=== PATIENT | female | born 1985 | race Caucasian/White ===

== ENCOUNTER 2022-05-22 08:00 | Outpatient (NON) | payer OTHER, SELFPAY | END 2022-05-22 08:01 | disposition home or self-care (01) | LOC: ANHLAB 05-23 07:55 | PROVIDERS: Visit Provider Internal Medicine Gastroenterology | DX: D50.9 Iron deficiency anemia, unspecified (principal) | CPT/HCPCS: 88305 ==

== ENCOUNTER 2022-05-22 09:54 | Day surgery (SDC) | payer OTHER, SELFPAY ==
[2022-05-18 09:09] VITALS: BMI 21.5
--- NOTE | 2022-05-21 14:23 | PM.HPGS ---
History of Present Illness History of Present Illness Consent: Risks, benefits, and alternatives have been discussed and questions answered. Patient agrees to proceed with procedure. Chief complaint: Microcystic Anemia Narrative: Stephanie Saucedo is a 37 year old female who has been found to be anemic, with Hemoglobin of 9.5, MCV 74.She has had loose stools for several months. Denies blood in stools. Fam Hx neg. Review of Systems Review of Systems: All systems reviewed & are unremarkable except as noted in HPI and below PMFSH Past Medical History Medical History Anemia Anxiety Endometriosis GERD (gastroesophageal reflux disease) Family History Family History Father Hypertension Mother Asthma Other Diabetes mellitus Family history of malignant neoplasm Social History Social History Smoking packs per day: 0.5 Smoking cigarettes per day: 10.0 Years smoked: 15 Smoking pack-years: 7.50 Smoking status: Current every day smoker Tobacco type: cigarettes and e-cigarettes/vaping Smoking end date: 06/18/09 Alcohol intake: current Drinks per week: 8 Substance use: never Living arrangements: with family Spiritual care concerns: No Meds Home Medications and Allergies Home Medications Medication Instructions Recorded Confirmed Type alprazolam 0.25 mg tablet 0.25 mg PO BID PRN Anxiety 05/18/22 05/22/22 History escitalopram oxalate 10 mg tablet 5 mg PO HS 05/18/22 05/22/22 History Allergies Allergy/AdvReac Type Severity Reaction Status Date / Time Sulfa (Sulfonamide Allergy Intermediate Hives Verified 05/22/22 10:34 Antibiotics) adhesive Allergy Unknown RASH Verified 05/22/22 10:34 morphine Allergy Unknown Itching, Verified 05/22/22 10:34 HIVES Exam Const: General: alert Orientation/consciousness: patient oriented x3 Resp: Auscultation: clear to auscultation bilaterally Cardio: Rhythm: regular rhythm GI: GI Palp: Yes Soft to palpation and No Tenderness to palpation present (GI) Neuro: General: patient oriented x3 Assessment and Plan Assessment and plan (1) Microcytic anemia: Code(s): D50.9 - Iron deficiency anemia, unspecified Status: Acute Assessment and Plan: Colonoscopy with possible biopsy or polypectomy or cautery or injection of substances.
--- NOTE | 2022-05-22 07:10 | WPDANESEPPF ---
Anes - Initial Pre Proc Eval Procedure: Operation Date: 05/22/22 14:15 Proposed Procedures p Diagnostic Colonoscopy - Brando Cerda MD Date/Time: 05/22/22 07:10 Surgeon: Brando Cerda MD Pre Op Diagnosis: Microcystic Anemia Patient Data Age: 37 Gender: F Height: 1.52 m Weight: 50 kg Allergies Allergy/AdvReac Type Severity Reaction Status Date / Time Sulfa (Sulfonamide Allergy Intermediate Hives Verified 05/22/22 10:34 Antibiotics) adhesive Allergy Unknown RASH Verified 05/22/22 10:34 morphine Allergy Unknown Itching, Verified 05/22/22 10:34 HIVES Home Medications Medication Instructions Recorded Confirmed Type alprazolam 0.25 mg tablet 0.25 mg PO BID PRN Anxiety 05/18/22 05/18/22 History escitalopram oxalate 10 mg tablet 5 mg PO HS 05/18/22 05/18/22 History Patient hx anesthesia problems: none Family hx anesthesia problems: none Results Review: All pre-operative results and documents have been reviewed as part of the pre-operative evaluation. [facility] Past Medical History Medical History (Updated 05/22/22 @ 07:11 by Adria Martinez DO) Anemia Anxiety Endometriosis GERD (gastroesophageal reflux disease) Family History Family History (Updated 10/25/15 @ 16:28 by DOCTOR UNKNOWN) Father Hypertension Mother Asthma Other Diabetes mellitus Family history of malignant neoplasm Social History Social History Smoking packs per day: 0.5 Smoking cigarettes per day: 10.0 Years smoked: 15 Smoking pack-years: 7.50 Smoking status: Current every day smoker Tobacco type: cigarettes and e-cigarettes/vaping Smoking end date: 06/18/09 Alcohol intake: current Drinks per week: 8 Substance use: never Living arrangements: with family Spiritual care concerns: No Anes - Eval Final PreProcedure Day of Procedure 05/22/22 07:10 Patient weight: normal Heart: regular rate and rhythm Lungs: clear to auscultation and normal air movement Airway: Mallampati scale class II Neurological: alert and oriented Last oral intake: >/= 8 hours ASA classification: II Emergent: no Anesthetic plan: proceed Anesthesia type and monitoring: general GIVS and standard monitoring Results Review: All pre-operative results and documents have been reviewed as part of the pre-operative evaluation. Informed Consent: The patient's anesthetic plan and its attendant risks and benefits were discussed with the patient/family/POA. Questions were solicited and answers provided to the satisfaction of the patient/family/POA.
[2022-05-22 10:25] VITALS: BP 121/74; PULSE 65; RESP 20; TEMP 36.9; O2SAT 100
[2022-05-22] MEDS: LACTATED RINGERS 1,000 ML 150 ML IV CONT (10:50)
[2022-05-22 12:03] VITALS: BP 96/63; PULSE 76; RESP 18; O2SAT 100
[2022-05-22 12:13] VITALS: BP 105/68; PULSE 72; RESP 20; O2SAT 100
[2022-05-22 12:23] VITALS: BP 107/76; PULSE 72; RESP 20; O2SAT 100
--- NOTE | 2022-05-22 13:35 | WPDANESPN ---
Anes - Prog Note Post-Op Date/Time: 05/22/22 13:35 Cardiovascular status: normal Respiratory status: normal Airway patency: baseline Mental status: baseline Post-Op hydration status: normal Vital Signs: Last Vital Signs Temp 36.9 C 05/22/22 10:25 Pulse 72 05/22/22 12:23 Resp 20 05/22/22 12:23 BP 107/76 05/22/22 12:23 Pulse Ox 100 05/22/22 12:23 O2 Del Method Room Air 05/22/22 12:23 Pain Score (VAS): 0 Post-procedural complaints: none Patient Feedback: Patient satisfied with anesthetic care. Other Findings: Patient vital signs back to baseline. Patient denies nausea and vomiting. Patient's pain under control. Patient OK for discharge.
== END 2022-05-22 12:33 | disposition home or self-care (01) ==
PROVIDERS: Visit Provider Internal Medicine Gastroenterology
PROC: 0DJD8ZZ Inspection of Lower Intestinal Tract, Via Natural or Artificial Opening Endoscopic (ICD-10-PCS; CPT 45378; principal; 2022-05-22 14:15)
DX: D50.9 Iron deficiency anemia, unspecified (principal)
CPT/HCPCS: 45380

== ENCOUNTER 2022-06-15 08:00 | Outpatient (NON) | payer OTHER, SELFPAY | END 2022-06-15 08:01 | disposition home or self-care (01) | LOC: ANHLAB 06-16 07:34 | PROVIDERS: PCP Family Medicine; Visit Provider Internal Medicine Gastroenterology | DX: K90.0 Celiac disease (principal) | CPT/HCPCS: 88305 ==

== ENCOUNTER 2022-06-15 11:32 | Day surgery (SDC) | payer OTHER, SELFPAY ==
[2022-06-14 10:52] VITALS: BMI 21.7
[2022-06-14 12:51] VITALS: BMI 21.4
--- NOTE | 2022-06-14 12:56 | SUR.PREOP ---
PRE-OPERATIVE [address] [address] 1. Report to the Surgery Center Waiting Room, the entrance is the first door on the right after passing through the automatic sliding doors, at time 1200____on date__06/15/22 . OR Time:_1330 . - You and your visitor will be asked to self-screen and do not enter if you have any COVID symptoms. - Two visitors over, age 16 and older, are allowed.? NO children visitors are allowed at this time. - Masking is based on community transmissions levels in [facility].? When the community transmission level is HIGH, masking will be required.? Signage will be posted indicating if masking is required the day of your procedure.? 2. Patients may have clear liquids (water, carbonated beverages, clear teas, apple juice) until 3 hours prior to surgery with a maximum of 20 ounces. - No food from midnight until time of surgery. - Infants may have breast milk until 4 hours before surgery, infant formula 6 hours prior to surgery. - Children will be allowed to drink immediately following surgery. If applicable, please bring a bottle or sippy cup to assist with drinking. Juice, water, soda, and popsicles are readily available. For infants on formula, please bring formula the day of surgery. Pacifiers are allowed. 3. Take the following medications with a SIP of water the morning of surgery: 1.___Alprazolam PRN 2. 3. Medications to discontinue per physician order: 1._n/a date to discontinue: 4. No make-up, nail malagasy, hairspray, perfume, deodorant, or body powder the day of surgery. No jewelry (including any body piercings) or valuables the day of surgery. Please take a shower or bath the night before, or the morning of, surgery with an antibacterial soap. Wear comfortable, loose fitting clothing. Children are encouraged to wear pajamas. - Jewelry must be removed prior to entering the operating room. Rings and piercings that are not removed will be cut off. The center will not accept responsibility for valuables. Please leave all valuables, including medications, at home the day of surgery. 5. When going home after surgery, a licensed driver license reviewing officer must drive you home. NO public transportation without another adult. We recommend someone to stay with you, no alcoholic beverages, driving or important decision making for 24 hours after surgery. For pediatric surgeries, we recommend two adults to accompany a child home. (Only one will be allowed into the building with the patient) 6. If you or anyone in your household have experienced Covid symptoms in the past week, please notify your surgeon or surgery center at phone number below for possible testing. 7. Follow any additional instructions given by your physician. Telephone instructions given to:____patient - Hilary and asked if any additional questions and then verbalized understanding. Patient advised to call surgeon office or the surgery center at [phone] if any additional questions.
--- NOTE | 2022-06-14 14:55 | PM.HPGS ---
History of Present Illness History of Present Illness Consent: Risks, benefits, and alternatives have been discussed and questions answered. Patient agrees to proceed with procedure. Chief complaint: Celiac Disease, Iron Deficient Anemia Narrative: Stephanie Saucedo is a 37 year old female With iron deficiency anemia who has recently tested positive for celiac disease by serology. She has had chronic diarrhea which did not respond to Imodium. She had normal colonoscopy. Serology was strongly indicative of celiac disease. She will have EGD and biopsies to confirm that Review of Systems Review of Systems: All systems reviewed & are unremarkable except as noted in HPI and below PMFSH Past Medical History Medical History Anemia Anxiety Endometriosis GERD (gastroesophageal reflux disease) Family History Family History Father Hypertension Mother Asthma Other Diabetes mellitus Family history of malignant neoplasm Social History Social History Smoking packs per day: 0.5 Smoking cigarettes per day: 10.0 Years smoked: 15 Smoking pack-years: 7.50 Smoking status: Current every day smoker Tobacco type: cigarettes and e-cigarettes/vaping Smoking end date: 06/18/09 Alcohol intake: current Drinks per week: 8 Substance use: never Living arrangements: with family Spiritual care concerns: No Meds Home Medications and Allergies Home Medications Medication Instructions Recorded Confirmed Type alprazolam 0.25 mg tablet 0.25 mg PO BID PRN Anxiety 05/18/22 06/15/22 History escitalopram oxalate 10 mg tablet 5 mg PO HS 05/18/22 06/15/22 History Allergies Allergy/AdvReac Type Severity Reaction Status Date / Time Sulfa (Sulfonamide Allergy Intermediate Hives Verified 06/15/22 12:18 Antibiotics) adhesive Allergy Unknown RASH Verified 06/15/22 12:18 morphine Allergy Unknown Itching, Verified 06/15/22 12:18 HIVES Exam Const: General: alert Orientation/consciousness: patient oriented x3 Resp: Auscultation: clear to auscultation bilaterally Cardio: Rhythm: regular rhythm GI: GI Palp: Yes Soft to palpation and No Tenderness to palpation present (GI) Neuro: General: patient oriented x3 Assessment and Plan Assessment and plan (1) Celiac disease: Code(s): K90.0 - Celiac disease Status: Acute Assessment and Plan: EGD with possible biopsy or dilatation or cautery.
--- NOTE | 2022-06-15 07:06 | WPDANESEPPF ---
Anes - Initial Pre Proc Eval Procedure: Operation Date: 06/15/22 13:30 Proposed Procedures p Esophagogastroduodenoscopy - Brando Cerda MD Date/Time: 06/15/22 07:06 Surgeon: Brando Cerda MD Pre Op Diagnosis: Celiac Disease, Iron Deficient Anemia Patient Data Age: 37 Gender: F Height: 1.52 m Weight: 49.895 kg Allergies Allergy/AdvReac Type Severity Reaction Status Date / Time Sulfa (Sulfonamide Allergy Intermediate Hives Verified 06/15/22 12:18 Antibiotics) adhesive Allergy Unknown RASH Verified 06/15/22 12:18 morphine Allergy Unknown Itching, Verified 06/15/22 12:18 HIVES Home Medications Medication Instructions Recorded Confirmed Type alprazolam 0.25 mg tablet 0.25 mg PO BID PRN Anxiety 05/18/22 06/15/22 History escitalopram oxalate 10 mg tablet 5 mg PO HS 05/18/22 06/15/22 History Patient hx anesthesia problems: none Family hx anesthesia problems: none Results Review: All pre-operative results and documents have been reviewed as part of the pre-operative evaluation. [facility] Past Medical History Medical History Anemia Anxiety Endometriosis GERD (gastroesophageal reflux disease) Family History Family History Father Hypertension Mother Asthma Other Diabetes mellitus Family history of malignant neoplasm Social History Social History Smoking packs per day: 0.5 Smoking cigarettes per day: 10.0 Years smoked: 15 Smoking pack-years: 7.50 Smoking status: Current every day smoker Tobacco type: cigarettes and e-cigarettes/vaping Smoking end date: 06/18/09 Alcohol intake: current Drinks per week: 8 Substance use: never Living arrangements: with family Spiritual care concerns: No Anes - Eval Final PreProcedure Day of Procedure 06/15/22 07:06 Patient weight: normal Heart: regular rate and rhythm Lungs: clear to auscultation and normal air movement Airway: Mallampati scale class II Neurological: alert and oriented Last oral intake: >/= 8 hours ASA classification: II Emergent: no Anesthetic plan: proceed Anesthesia type and monitoring: general GIVS and standard monitoring Results Review: All pre-operative results and documents have been reviewed as part of the pre-operative evaluation. Informed Consent: The patient's anesthetic plan and its attendant risks and benefits were discussed with the patient/family/POA. Questions were solicited and answers provided to the satisfaction of the patient/family/POA.
[2022-06-15 12:19] VITALS: BP 118/76; PULSE 76; RESP 13; TEMP 37.3; O2SAT 100
[2022-06-15] MEDS: LACTATED RINGERS 1,000 ML 150 ML IV CONT (12:45)
[2022-06-15 13:36] VITALS: BP 96/64; PULSE 78; RESP 20; O2SAT 98
[2022-06-15 13:46] VITALS: BP 112/75; PULSE 64; RESP 18; O2SAT 99
--- NOTE | 2022-06-15 13:51 | WPDANESPN ---
Anes - Prog Note Post-Op Date/Time: 06/15/22 13:51 Cardiovascular status: normal Respiratory status: normal Airway patency: baseline Mental status: baseline Post-Op hydration status: normal Vital Signs: Last Vital Signs Temp 37.3 C 06/15/22 12:19 Pulse 76 06/15/22 12:19 Resp 13 06/15/22 12:19 BP 118/76 06/15/22 12:19 Pulse Ox 100 06/15/22 12:19 O2 Del Method Room Air 06/15/22 12:19 Pain Score (VAS): 0 I/O: Intake & Output 06/14/22 06/15/22 06/15/22 23:59 07:59 15:59 Intake Total 300 Balance 300 Post-procedural complaints: none Patient Feedback: Patient satisfied with anesthetic care. Other Findings: Patient vital signs back to baseline. Patient denies nausea and vomiting. Patient's pain under control. Patient OK for discharge.
[2022-06-15 13:56] VITALS: BP 99/74; PULSE 66; RESP 18; O2SAT 99
--- NOTE | 2022-06-15 14:01 | SUR.PHASEII ---
PT AWAKE AND ALERT. DENIES PAIN. USING CELL PHONE. SPOUSE AT BEDSIDE. PT DRINKING DIET PEPSI
== END 2022-06-15 14:20 | disposition home or self-care (01) ==
PROVIDERS: PCP Family Medicine; Visit Provider Internal Medicine Gastroenterology
PROC: 0DJ08ZZ Inspection of Upper Intestinal Tract, Via Natural or Artificial Opening Endoscopic (ICD-10-PCS; CPT 43235; principal; 2022-06-15 13:30)
DX: D50.9 Iron deficiency anemia, unspecified (principal)
CPT/HCPCS: 43239

== ENCOUNTER 2022-06-22 08:39 | Outpatient (CLI) | payer OTHER, SELFPAY ==
--- NOTE | ~2022-06-22 | US_ITS ---
Abdominal Sonogram: Real-time sonographic imaging of the abdomen was performed. Clinical History: Abdominal pain Findings: The liver appears normal with no evidence of mass lesion or bile duct dilatation. Main por isabella vein demonstrates normal direction of flow. The spleen is normal in size without evidence of foca l lesion. The gallbladder is well distended, and appears normal with no evidence of gallstone or wal l thickening. The common bile duct measures 5 mm. The visualized pancreas, aorta, and IVC are unrema rkable. The right kidney measures 11.2 cm in length and the left kidney measures 11.3 cm. There is no hydronephrosis or renal calculus. Impression: Unremarkable abdominal ultrasound. Reviewed, dictated and finalized at location . [employer] Impression: Unremarkable abdominal ultrasound.
== END 2022-06-22 08:40 | disposition home or self-care (01) ==
PROVIDERS: PCP Family Medicine; Visit Provider Internal Medicine Gastroenterology
DX: R10.11 Right upper quadrant pain (principal)
CPT/HCPCS: 76700

== ENCOUNTER 2022-06-29 09:22 | Outpatient (RCR) | payer OTHER, SELFPAY ==
[2022-06-29 09:38] VITALS: BMI 21.4
== END 2022-09-18 08:47 | disposition home or self-care (01) ==
LOC: ANHDMC 09:22
PROVIDERS: PCP Family Medicine; Referring Provider Internal Medicine Gastroenterology; Visit Provider Internal Medicine Gastroenterology
DX: K90.0 Celiac disease (principal); Z71.3 Dietary counseling and surveillance
CPT/HCPCS: 97802

== ENCOUNTER 2023-02-27 12:43 | Outpatient (CLI) | payer OTHER, SELFPAY | END 2023-02-27 12:44 | disposition home or self-care (01) | LOC: ANHSURGERY 12:47 | PROVIDERS: PCP Family Medicine; Visit Provider Obstetrics & Gynecology | DX: Z01.818 Encounter for other preprocedural examination (principal); R10.2 Pelvic and perineal pain | CPT/HCPCS: 36415; 86850; 86900; 86901 ==

== ENCOUNTER 2023-03-02 00:19 | Day surgery (SDC) | payer OTHER, SELFPAY ==
[2023-02-23 14:34] VITALS: BMI 24.5
--- NOTE | 2023-02-23 14:43 | PC.NURSE ---
Report to the Outpatient Waiting Room, entrance under the green pavilion located off [facility], at 1330 on 03/02/23. Planned Procedure Time: 1530. Time changes happen often and if your time is changed the preop area will call you the afternoon before. - You and your visitor will be asked to self-screen and do not enter if you have any COVID symptoms. - A mask is optional within the hospital at this time. Patients may have clear liquids (water, carbonated beverages, clear teas, apple juice) until 3 hours prior to surgery with a maximum of 20 ounces. - No food from midnight until time of surgery Take the following medications with a SIP of water the morning of surgery: Alprazolam, if needed. Omeprazole DO NOT STOP ANY OF YOUR OTHER PRESCRIPTION MEDICATIONS PRIOR TO SURGERY ?EXCEPT THE FOLLOWING Medications to discontinue per physician n/a Date to take last dose n/a Please no make-up, nail slovak, hairspray, perfume, deodorant, or body powder the day of surgery. No jewelry (including any body piercings) or valuables the day of surgery, leave them at home. Please take a shower or bath the night before, or the morning of, surgery with an antibacterial soap. Wear comfortable, loose fitting clothing. - Jewelry must be removed prior to entering the operating room. Rings and piercings that are not removed may be cut off. - The hospital will not accept responsibility for valuables. - Please leave all valuables, including medications, at home the day of surgery. If you are going home after surgery, a licensed car driver must drive you home. - NO public transportation without another adult if you receive anesthesia. - We recommend that an adult stay with you for 24 hours following discharge. - We also recommend that you do not drive, make important decision, drink alcoholic beverages, or take any drugs that were not prescribed by your health care provider for at least 24 hours after your discharge time. Follow any additional instructions given to you from your surgeon. If you or anyone in your household have experienced Covid symptoms in the past week, please notify your surgeon or the nurse liaison at the phone number below for possible testing. Telephone instructions given to patient and asked if any additional questions and then verbalized understanding. Patient advised to call surgeon office or pre surgery nurse liaison [phone] if any additional questions.
--- NOTE | 2023-02-27 16:28 | PM.IMHP ---
H&P: HPI History of Present Illness Date/Time: 02/27/23 16:28 Chief Complaint: Pelvic pain Narrative: To [age]-year-old 2 para 2 female admitted for laparoscopy secondary to pelvic pain. She has had pain discomfort dyspareunia. She has an IUD placed but that has been shown ultrasonically to be in the normal spot. She continues with dyspareunia. Risks and benefits reviewed including but not exclusive of , aspiration pneumonia, bleeding, transfusion, perforation of bowel, bladder, ureters, or other internal organs with need laparotomy. She received the [employer] handout entitled laparoscopy. She had all questions answered. She asked to proceed PMFSH Past Medical History Medical History Anemia Anxiety Endometriosis GERD (gastroesophageal reflux disease) Family History Family History Father Hypertension Mother Asthma Other Diabetes mellitus Family history of malignant neoplasm Social History Social History Smoking packs per day: 0.5 Smoking cigarettes per day: 10.0 Years smoked: 15 Smoking pack-years: 7.50 Smoking status: Former smoker Tobacco type: cigarettes and e-cigarettes/vaping Smoking end date: 07/26/22 Alcohol intake: current Drinks per week: 10 Alcohol use details: beer Substance use: never Living arrangements: with family Spiritual care concerns: No Meds Home Medications and Allergies Home Medications Medication Instructions Recorded Confirmed Type alprazolam 0.25 mg tablet 0.25 mg PO BID PRN Anxiety 05/18/22 02/23/23 History escitalopram oxalate 10 mg tablet 10 mg PO HS 05/18/22 02/23/23 History omeprazole 40 mg capsule,delayed 40 mg PO DAILY 02/23/23 02/23/23 History release Allergies Allergy/AdvReac Type Severity Reaction Status Date / Time morphine Allergy Intermediate Itching, Verified 02/23/23 14:32 HIVES Sulfa (Sulfonamide Allergy Intermediate Hives Verified 02/23/23 14:32 Antibiotics) adhesive Allergy Unknown RASH Verified 02/23/23 14:32 Exam Const: General: cooperative, healthy appearing, comfortable and average body habitus Orientation/consciousness: oriented to person, oriented to place and oriented to time HENMT: Head: normal to inspection Resp: Effort & Inspection: normal respiratory effort Cardio: Rate: regular rate Rhythm: regular rhythm Heart sounds: S1 normal heart sound present and S2 normal heart sound present GI: Inspection: normal to inspection : External Female Exam: normal external appearance Speculum Exam - Vagina: normal appearance of the vagina Speculum Exam - Cervix: normal appearance of the cervix Bimanual exam- vagina & uterus: uterine size normal and Uterine tenderness Bimanual Exam- Adnexa, other: tender bilaterally Assessment and Plan Assessment and plan (1) Pelvic pain: Code(s): R10.2 - Pelvic and perineal pain Status: Acute Plan Diagnostic laparoscopy
--- NOTE | 2023-03-02 06:49 | WPDHPUPDATE1 ---
History and Physical Update Update Date/Time: 03/02/23 06:49 History and Physical has been reviewed, including an updated exam of the patient. There are NO changes in the patient's condition. Risks, benefits, and alternatives have been discussed and questions answered. Patient agrees to proceed with procedure.
[2023-03-02] MEDS: LACTATED RINGERS 1,000 ML 30 ML IV CONT (07:55)
[2023-03-02] MEDS: ACETAMINOPHEN 500 MG TABLET 1000 MG PO (08:10)
[2023-03-02] MEDS: KETOROLAC 15 MG/ML VIAL (*BKC) IV PUSH ×2 (08:10→10:01)
--- NOTE | 2023-03-02 08:13 | P.PNAN_ITS ---
Anes - Initial Pre Proc Eval Procedure: Operation Date: 03/02/23 09:30 Proposed Procedures p Diagnostic Laparoscopy - Ez Rey MD Date/Time: 03/02/23 08:13 Surgeon: Ez Rey MD Pre Op Diagnosis: pelvic pain Patient Data Age: 37 Gender: F Height: 1.55 m Weight: 59 kg Allergies Allergy/AdvReac Type Severity Reaction Status Date / Time morphine Allergy Intermediate Itching, Verified 03/02/23 08:06 HIVES Sulfa (Sulfonamide Allergy Intermediate Hives Verified 03/02/23 08:06 Antibiotics) adhesive Allergy Unknown RASH Verified 03/02/23 08:06 Home Medications Medication Instructions Recorded Confirmed Type alprazolam 0.25 mg tablet 0.25 mg PO BID PRN Anxiety 05/18/22 03/02/23 History escitalopram oxalate 10 mg tablet 10 mg PO HS 05/18/22 03/02/23 History omeprazole 40 mg capsule,delayed 40 mg PO DAILY 02/23/23 03/02/23 History release Patient hx anesthesia problems: none Family hx anesthesia problems: none Results Review: All pre-operative results and documents have been reviewed as part of the pre- operative evaluation. [facility] Past Medical History Medical History Anemia Anxiety Endometriosis GERD (gastroesophageal reflux disease) Family History Family History Father Hypertension Mother Asthma Other Diabetes mellitus Family history of malignant neoplasm Social History Social History Smoking packs per day: 0.5 Smoking cigarettes per day: 10.0 Years smoked: 15 Smoking pack-years: 7.50 Smoking status: Former smoker Tobacco type: cigarettes and e-cigarettes/vaping Smoking end date: 07/26/22 Alcohol intake: current Drinks per week: 10 Alcohol use details: beer Substance use: never Living arrangements: with family Spiritual care concerns: No Anes - Eval Final PreProcedure Day of Procedure 03/02/23 08:13 Patient weight: normal Heart: regular rate and rhythm Lungs: clear to auscultation Airway: Mallampati scale class II Neurological: alert and oriented Last oral intake: >/= 8 hours ASA classification: II Emergent: no Anesthetic plan: proceed Anesthesia type and monitoring: general ETT and standard monitoring Results Review: All pre-operative results and documents have been reviewed as part of the pre- operative evaluation. Informed Consent: The patient's anesthetic plan and its attendant risks and benefits were discussed with the patient/family/POA. Questions were solicited and answers provided to the satisfaction of the patient/family/POA.
--- NOTE | 2023-03-02 10:00 | W.PM.PROC2 ---
Procedure Note - Detailed Date of Procedure 03/02/23 Pre-op Diagnosis pelvic pain Post-op Diagnosis Other (Endometriosis/right ovarian cyst) Procedure Performed Laparoscopic destruction of endometriosis destruction of right ovarian cyst Surgeon Ez Rey MD Anesthesia General Indications A 37-year-old female with pelvic pain findings on ultrasound Findings Normal-appearing uterus. Small right ovarian cyst which appeared benign. Areas of endometriosis along the left and right uterosacral ligaments. 5cc of serosanguineous fluid in the cul-de-sac. Description of Procedure Patient was prepped draped in normal sterile fashion placed in dorsal lithotomy position. Under general trach anesthesia was but placed post Meza vagina. Anterior lip of cervix grasped single-tooth tenaculum. Carrizales's cannula inserted the cervix attached to the single-tooth to be used later for uterine manipulation. After emptying the bladder clear urine, the the weighted speculum was removed the gloves were changed. An infraumbilical incision made in the Veress needle passed in the abdomen. Abdomen filled with CO2 gas to 15mm Hg. 5mm trocar advanced under direct visualization with optic scope no injury seen. Patient placed in Trendelenburg and a suprapubic incision made. The 5mm trocar advanced under direct visualization assuring no injury. The serosanguineous fluid in cul-de-sac fluid was irrigated and suction. Areas of endometriosis were seen along the right left uterosacral ligament. Photo documentation undertaken. These were then point cauterized at 35 w per 2nd with monopolar cautery. Irrigation undertaken to clear the right ovary had a moderate-sized ovarian cyst which appeared follicular in nature. This was opened in linear fashion and drained of clear fluid. The appendix gallbladder and liver edge all appeared within normal limits and photo documentation undertaken. Lower site removed. The gas removed from the abdomen. The upper site removed and the incisions closed with 4 Monocryl glue. Instruments removed from the vagina the patient was awakened. She went to recovery in satisfactory condition. All sponge, needle, instrument counts were correct. There were no immediate complications noted Estimated Blood Loss 5 Drains No Packing No Pathology None sent Complications No immediate complications Condition Stable Disposition PACU
[2023-03-02 10:07] VITALS: BP 144/91; PULSE 78; RESP 11; TEMP 36.9; O2SAT 99
[2023-03-02] MEDS: fentaNYL CITRATE INJ (*CRX) 100 MCG/2 ML VIAL 25 MCG IV PUSH ×6 (10:16→10:38)
[2023-03-02 10:20] VITALS: BP 130/86; PULSE 64; RESP 16; O2SAT 100
[2023-03-02 10:35] VITALS: BP 129/75; PULSE 64; RESP 14; O2SAT 98
[2023-03-02 10:55] VITALS: BP 130/75; PULSE 60; RESP 16
[2023-03-02] MEDS: oxyCODONE HCL (*CRX) 5 MG TAB IR PO (11:23)
[2023-03-02 11:25] VITALS: BP 116/72; PULSE 68; RESP 14
[2023-03-02 11:55] VITALS: BP 114/74; PULSE 65; RESP 16
== END 2023-03-02 12:10 | disposition home or self-care (01) ==
PROVIDERS: PCP Family Medicine; Visit Provider Obstetrics & Gynecology
PROC: (CPT 49320; principal; 2023-03-02 09:30)
DX: N83.201 Unspecified ovarian cyst, right side (principal); N80.3C3 Endometriosis of bilateral uterosacral ligament(s), unspecified depth; K21.9 Gastro-esophageal reflux disease without esophagitis; F41.9 Anxiety disorder, unspecified; Z87.891 Personal history of nicotine dependence
CPT/HCPCS: 58662; 36415; 86850; 86900; 86901; A9270; J1100; J1885; J2250; J2405; J2704; J3010; J7030; J7120

== ENCOUNTER 2023-03-21 10:07 | Outpatient (CLI) | payer OTHER, SELFPAY ==
--- NOTE | ~2023-03-21 | US_ITS ---
EXAMINATION: US thyroid DATE: 03/21/2023 10:59 INDICATION: Elevated PTH. TECHNIQUE: Multiple ultrasound images of the thyroid were obtained. COMPARISON: None. FINDINGS: The right thyroid lobe measures 3.6 x 1.1 x 1.2 cm. The left thyroid lobe measures 3.8 x 1.4 x 1.6 c m. There is normal echotexture and echogenicity throughout the thyroid gland. No discrete nodules id entified. Normal vascular flow is present. IMPRESSION: Normal thyroid ultrasound findings. No sonographic abnormality detected in the region of the parathyroid glands. Reviewed, dictated and finalized at location K.
== END 2023-03-21 10:08 ==
PROVIDERS: PCP Internal Medicine; Visit Provider Obstetrics & Gynecology
DX: E21.0 Primary hyperparathyroidism (principal)
CPT/HCPCS: 76536

== ENCOUNTER 2025-05-18 09:58 | Outpatient (CLI) | payer BC, SELFPAY ==
[2025-05-18 10:37] LABS: Hematocrit 46.1 % (37.0-47.0); Hemoglobin 15.6 g/dL (12.0-15.0); Mean Corpuscular HGB Conc 33.8 g/dl (32-36); Mean Corpuscular Hemoglobin 33.3 pg (26-34); Mean Corpuscular Volume 98.5 fl (80-100); Platelet Count Result 198 k/mm3 (150-375); Red Blood Count 4.68 M/mm3 (4.2-5.4); White Blood Count 4.1 K/mm3 (4.5-10.0)
--- OUTSIDE RECORDS SUMMARY | 2025-05-18 11:09 | XMS_ITS | Encounter Summary ---
Author Organization [facility] Address [address] [place] [address] Phone Care Team Providers Care Creche Attendant Name Role Phone Messi Rincon MD Primary Care Provider [phone] Derrick Yun MD Primary Care Provider + Encounter Details Date Type Department Care Team (Latest Contact Info) Description 05/30/2022 Orders Only [facility] Scanning, Provider Social History Tobacco Use Types Packs/Day Years Used Date Smoking Tobacco: Former Cigarettes Q uit: 07/13/2016 Smokeless Tobacco: Never Alcohol Use Standard Drinks/Week Comments Not Asked 0 (1 standard drink = 0.6 oz pur e alcohol) social PHQ-2 Answer Date Recorded PHQ-2 Score 0 02/08/2019 Comments No Sex and Gender Information Value Date Recorded Sex Assigned at Not on file Legal Sex Female 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 difficile Comment:Patient has been treated 03/04/2024 03/04/2024 025 7:26 PM CDT documented as of this encounter Care Teams Creche Attendant Relationship Specialty Start Date End Date Messi Rincon MD [address] [place] [address] PCP - General Family Medicine 02/12/17 05/29/23 Derrick Yun MD [address] [facility] [place] [address] PCP - General Internal Medicine 05/30/23 documented as of this encounter
--- OUTSIDE RECORDS SUMMARY | 2025-05-18 11:09 | XMS_ITS | Clinical Summary ---
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 Gender Identity Not on file Sexual Orientation Not on file Plan of Treatment Health Maintenance Due Date Last Done Comments Cervical Cancer Screening Pa p Smear (Age 30 to 64) Every 3 Years 1985 Annual Physical 1988 Hepatitis C 2003 DTaP, Tdap and Td Vaccines ( 1 - Tdap) 2004 Hepatitis B Vaccines (1 of 3 - 19+ 3-dose series) 2004 HPV Vaccines (1 - 3-dose SCD M series) 2012 Cervical Cancer Screening Pa p with HPV Testing (Age 30 to 64) Every 5 Years 2015 Cervical Cancer Screening with HPV 2015 COVID-19 Vaccine (2024-2 6 season) 2025 Influenza Adult (#1) 2025 Mammogram Screening 2025 Hepatitis A Vaccines Aged Out No long er eligible based on patient's age to complete this topic Meningococcal B Vaccine Aged Out No l onger eligible based on patient's age to complete this topic Meningococcal Vaccine Aged Out No deirdre ginger eligible based on patient's age to complete this topic Pneumococcal Vaccine: Pediat rics (0 to 5 Years) and At-Risk Patients (6 to 49 Years) Aged Out No longer eligible b ased on patient's age to complete this topic RSV Immunizations Under 20 Months Aged Out No longer eligible based on patient's age to complete this topic
--- OUTSIDE RECORDS SUMMARY | 2025-05-18 11:09 | XMS_ITS | Clinical Summary ---
Author Organization [facility] Address [address] [place] [address] Care Team Providers Care Animal Caretaker Supervisor Name Role Phone Messi Rincon MD Primary Care Provider [phone] Source Comments [facility],non-owned Affiliates and Associated Physician Practices is amultiple site organization consisting of ambulatory clinics and hospital sitesin [place], [place], [place] and [place]. This disclosure is being madepursuant to the Care Everywhere program and may not contain all information available regarding this patient. Last updated [employer] Allergies Active Allergy Reactions Criticality Noted Date Comments Sulfa Drugs 07/26/2012 Medications * Be aware that medications may not be up to date on this document. Alwaysverify current medications with the patient. No known medications Active Problems Patient Care Coordination No te Formatting of this note migh t be different from the original. Please see care plan in problem list. Problem Noted Date Diagnosed Date Family history of congenital diaphragmatic herni a 08/28/2014 Resolved Problems Problem Noted Date Diagnosed Date Resolved Date Supervision of high-risk 11/30/2012 12/18/2012 Overview (11/30/2012): B-/Eq/-/-, NR Not immune to rubella 11/30/20122012 Overview (11/09/2014): Equivocal 05/13/12 abnormality in pregnan cy- Congenital Diaphragmatic Hernia 07/29/2012 12/18/2012 Overview (11/29/2012): Images from the original note were not included. CARE INSTITUTE PATIENT--PLEASE CALL [phone] IF TRIAGED OR ADMITTED THIS CARE PLAN IS BASED ON EVALUATION, SUBJECT TO CHANGE BASED ON ASSESSMENT. Diagnosis: Congenital Diaphragmatic Hernia, left- sided, stomach up, liver down Please see Images and Cardiac under Chart Review for US/ ECHO/ MRI reports. Please also see [facility] EPIC for further images. Planned surveillance: Weekly surveillance (LONG-TERM/ [facility] office) Planned delivery location: [facility] Delivering Provider: Dr. Robin Mejia Planned GA at delivery: TBD; Scheduled for IOL on 12.01.12 at 8:00 PM at [facility] Planned mode of delivery: TBD; G1 Care Provider: OB- Dr. Ez Najera/ Anatoliy, FABIOLA to Dr. Mejia Consultants involved: M- Roberto, Neonatology- Eber/ Bruce, Pediatric Surgery- David, Genetics- Giovanni, Senior Net Web Developer- Belle, Fooprints- Conrad care needed at : Per 10.28.12 Neonatology Consult: I told parents that the likely complications would be related to lung volume in the period of time. Specifically, that the may have severe respiratory distress and severe pulmonary hypertension. We discussed the possible interventions including intubation and mechanical ventilation and ECMO, transfer to [facility], and surgery. We also discussed longer term outcomes such as neurodevelopmental outcomes and feeding difficulties. Mother and father's questions were answered. Planned care after delivery: Neonatology to attend delivery, stabilize, transfer to NICU for further management. Genetics note: genetic diagnostic testing was not performed. Non- invasive testing was performed and was negative for trisomies 13/18/21; however, this is not diagnostic testing. Please request Genetics consult postnatally if clinically indicated and/or prior to ordering genetic studies by calling Dr. Adria Solano at [phone]. Bumper Machine Operator: Dr. Ramy Jacobo ([place], [place]) *For further coordination, please refer to the consulting physician s notes for management of the * anomaly- Mass in chest 07/26/2012 08/28/2014 Immunizations Immunization Administration Dates Next Due MMR 12/05/2012 Rho D Immune Globulin 12/05/2012 TDAP (7yrs+) 12/06/2012 Family History Medical History Relation Name Comments Hypertension Father Diabetes Maternal Grandmother Type I DM Stroke Maternal Grandmother Arthritis Neg Hx Bleeding Disorders Neg Hx Cancer Neg Hx Clotting Disorder Neg Hx Genetic/Metabolic Disease Neg Hx Heart Disease Neg Hx Kidney Disease Neg Hx Multiple Births Neg Hx Labor Neg Hx Sickle Cell Anemia Neg Hx Toxemia Neg Hx Tuberculosis Neg Hx Twins Neg Hx Relation Name Status Comments Father Alive Maternal Grandmother Social History Tobacco Use Types Packs/Day Years Used Date Smoking Tobacco: Former Cigarettes 0.5 6 0 02/16/2006 - 02/17/2012 Smokeless Tobacco: Never Tobacco Cessation:Counseling Given: Yes Alcohol Use Standard Drinks/Week Comments No 0 (1 standard drink = 0.6 oz pur e alcohol) Comments No Sex and Gender Information Value Date Recorded Sex Assigned at Not on file 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 Gender Identity Not on file Sexual Orientation Not on file Last Filed Vital Signs Vital Sign Reading Time Taken Comments Blood Pressure 110/74 02/27/2017 10:30 AM CDT Pulse 84 02/27/2017 10:30 AM CDT Temperature 37.6 C (99.6 F) 02/27/2017 10:30 AM CDT Respiratory Rate 16 02/27/2017 10:30 AM CDT Oxygen Saturation 99% 02/27/2017 10:30 AM CDT Inhaled Oxygen Concentration - - Weight 59 kg (130 lb) 02/27/2017 10:30 AM CDT Height 152.4 cm (5') 02/27/2017 10:30 AM CDT Body Mass Index 25.39 02/27/2017 10:30 AM CDT Plan of Treatment Health Maintenance Due Date Last Done Comments LIPID TESTING 1985 MAMMOGRAM 1985 HIV SCREENING 2000 HEPATITIS C SCREENING 04/21/2003 HEPATITIS B VACCINE (1 of 3 - 19+ 3-dose series) 2004 Cervical Cancer Screening 2006 PAP SMEAR 2006 HPV VACCINE (1 - 3-dose SCDM series) 2012 PAP with HPV 2015 DTAP/TDAP/TD VACCINES (2 - T d or Tdap) 12/06/2022 12/06/2012 DEPRESSION SCREENING 06/18/2024 COVID-19 VACCINE ( - 2024-2 6 season) 2025 INFLUENZA VACCINE (#1) 2025 ZOSTER VACCINE (1 of 2) 2035 HIB VACCINE Aged Out No longer eligi ble based on patient's age to complete this topic MENINGOCOCCAL (Group B) VACC INE SHARED DECISION-MAKING Aged Out No longer eligibl e based on patient's age to complete this topic MENINGOCOCCAL GROUPS A/C/Y/W VACCINE Aged Out No longer eligible b ased on patient's age to complete this topic PNEUMOCOCCAL VACCINE Aged Out No long er eligible based on patient's age to complete this topic Insurance Advance Directives * FULL RESUSCITATION (Latest Code Status on File) Date Activated Date Inactivated Comments 12/01/2012 8:18 PM 12/06/2012 11:31 AM Care Teams Animal Caretaker Supervisor Relationship Specialty Start Date End Date Messi Rincon MD [address] [place] [address] PCP - General 06/26/22
--- OUTSIDE RECORDS SUMMARY | 2025-05-18 11:09 | XMS_ITS | Clinical Summary ---
Author Organization [address] lt Address [address] [place] [address] Care Team Providers Care Site Lead Name Role Phone Derrick Yun MD Primary Care Provider + Allergies Active Allergy Reactions Criticality Noted Date Comments Gluten Other (See comments) Low 05/21/2024 Celiac disease Sulfanilamide Rash Medium Medications ALPRAZolam (XANAX) 0.25 mg tablet Take 1 tablet (0.25 mg total) by mouth 3 (three) times a day as needed for anxiety Active metroNIDAZOLE (METROGEL) 0.75 % gelIndications: Acne Rosacea Apply topically nightly 45 g 11 4 Active Additional Information Patient not taking.Reported on 10/30/2024 famotidine (PEPCID) 20 mg tablet Take 1 tablet (20 mg total) by mouth 2 (two) times a day Active escitalopram (LEXAPRO) 10 mg tablet Take 1 tablet (10 mg total) by mouth daily 4 Active methylPREDNISol one (MEDROL DOSEPACK) 4 mg Dosepack 5 Active Active Problems Problem Noted Date Diagnosed Date 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 Medication changes per orders. Psychological condition will be reassessed in 4 weeks. Will stop bupropion today & start buspar 7.5mg bid tomorrow morning. Reviewed med SE & scheduling. Discussed possible increase in dosage or increase to tid if needed. To make f/u appt in 1 month. Reviewed med SE & scheduling. Reviewed red flags. Discussed sleep disturbance and anxiety. Will reassess at next appt (if decreased anxiety helps to increase sleep quality). BMI 22.0-22.9, adult 11/08/2018 Assessment & Plan (11/08/2018 8:43 AM CDT): BMI is acceptable for this patient. Family history of congenital diaphragmatic herni a 08/28/2014 Encounters Date Type Department Care Team Description 04/15/2025 Telephone [facility] Gastroenterology [address] [place] [address] [place] [id number] Alana Hopper from Last 3 Months Immunizations Immunization Administration Dates Next Due Influenza, Unspecified 02/16/2018,02/16/2017 MMR 12/05/2012 Rho (D) Immune Globulin 12/05/2012 Tdap 12/06/2012 Surgical History Surgery Date Site/Laterality Comments SECTION 11/2012 and 11/2014 UMBILICAL HERNIA REPAIR 10/17/2015 - 11/16/2015 Medical History Medical History Date Comments Anemia Anemia Celiac disease Anxiety GERD with esophagitis Family History Medical History Relation Name Comments Diabetes type I Cousin 1 Multiple sclerosis Cousin 2 Crohn's disease Cousin 3 Diabetes Father Hypertension Father Celiac disease Father's Sister Iron deficiency Half-Brother Hypothyroidism Maternal Grandmother Hypothyroidism Mother Hypertension Sister Obesity Sister No Known Problems Son 1 No Known Problems Son 2 Colon cancer Neg Hx Stomach cancer Neg Hx Ulcerative colitis Neg Hx Relation Name Status Comments Cousin 1 Alive Maternal side Cousin 2 Alive Paternal side Cousin 3 Alive Paternal side Father Alive Father's Sister Alive Half-Brother Alive Maternal Grandmother Mother Alive Sister Alive Son 1 Alive Son 2 Alive Social History Tobacco Use Types Packs/Day Years Used Date Smoking Tobacco: Former Cigarettes Q uit: 07/13/2016 Passive Smoke Exposure: Never Smokeless Tobacco: Never Alcohol Use Standard Drinks/Week Comments Not Asked 0 (1 standard drink = 0.6 oz pur e alcohol) social AUDIT-C Answer Date Recorded Q1: How often do you have a drink containing alcohol? 4 or more times a week 07/01/2024 Q2: How many drinks containi ng alcohol do you have on a typical day when you are drinking? 3 or 4 Q3: How often do you have si x or more drinks on one occasion? Weekly 07/01/2024 PHQ-2 Answer Date Recorded PHQ-2 Score 0 02/08/2019 Personal Safety Answer Date Recorded Have you ever been in or are you currently in a harmful physical or emotional relationship or is someone making you feel afraid or unsafe? 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 Gender Identity Female 07/12/2022 8:43 AM MANUFACTURING PLANT MANAGER Sexual Orientation Straight 07/12/2022 8: 43 AM MANUFACTURING PLANT MANAGER Last Filed Vital Signs Vital Sign Reading Time Taken Comments Blood Pressure 147/89 10/30/2024 1:42 PM CDT Pulse 69 10/30/2024 1:42 PM CDT Temperature 36.8 C (98.2 F) 10/30/2024 1:42 PM CDT Respiratory Rate 18 10/30/2024 1:42 PM CDT Oxygen Saturation 100% 10/30/2024 1:42 PM CDT Inhaled Oxygen Concentration - - Weight 68.1 kg (150 lb 3.2 oz) 10/30/2024 1:42 P M CDT Height 153.7 cm (5' 0.5) 10/30/2024 1:42 PM CDT Body Mass Index 28.85 10/30/2024 1:42 PM CDT Plan of Treatment Health Maintenance Due Date Last Done Comments Breast Cancer Screening-Mammogram 1985 Cervical Cancer Screening 1985 Hepatitis C Screening 1985 Hepatitis B Screening 2003 Regular Well Visit/Exam 18-64 2003 HPV Vaccines (1 - 3-dose SCD M series) 2012 Varicella Vaccines (1 of 2 - 13+ 2-dose series) 01/02/2013 Depression Screening 11/09/2019 11/08/2018, 07/13/2017 DTaP/Tdap/Td Vaccine (4 - Td or Tdap) 12/11/2024 12/11/2014, 11/17/2014, 12/06/2012 Influenza Vaccine (#1) 2025 , 02/16/2018, 02/16/2017 Pneumococcal vaccine <65 Aged Out No longer eligible based on patient's age to complete this topic Medical Devices Implanted Type Area Engraver Block Device Identifier Shelf Expiration Date Model / Serial / Lot Iud Uterus Insurance [place] [address] TRADITIONAL [facility], [facility] ACCESS ANTHEM ACCESS Advance Directives For more information, please contact: [phone] * Full Code (Latest Code Status on File) Date Activated Date Inactivated Comments 07/01/2024 10:24 AM 07/01/2024 4:21 PM Care Teams Site Lead Relationship Specialty Start Date End Date Derrick Yun MD [address] [place] [address] PCP - General Internal Medicine 05/30/23
== END 2025-05-18 09:59 | disposition home or self-care (01) ==
LOC: ANHSURGERY 10:02
PROVIDERS: PCP Internal Medicine; Visit Provider Obstetrics & Gynecology
DX: R10.20 Pelvic and perineal pain unspecified side (principal)
CPT/HCPCS: 36415; 85027; 86850; 86900; 86901

== ENCOUNTER 2025-05-22 00:35 | Day surgery (SDC) | payer BC, SELFPAY ==
[2025-05-12 13:30] VITALS: BMI 27.3
--- NOTE | 2025-05-12 13:30 | PC.NURSE ---
Addendum entered by Meg Schneider RN 05/12/25 13:33: MAY TAKE XANAX (IF NEEDED) MORNING OF SURGERY. MAY TAKE LEXAPRO THE MORNING OF SURGERY. Original Note: [facility] has started construction of its new state of the art ER which will open Spring 2026. With this, we anticipate parking may be a challenge for some our surgical patients and families. Parking spaces are limited but are available for all Surgical, obstetrics, and ER patients sharing this lot. If you arrive and find you are having a hard time finding a parking space, please note that we understand the challenges, please drive around the hospital and park near Hospital Entrance 1. When you enter this entrance, you can ask a volunteer to direct or take you back to the surgical waiting area to check in. We appreciate everyone?s understanding of these expected challenges while we build for your future. Report to the Outpatient Waiting Room, entrance under the green pavilion located off [facility], at time __6:00 am on date __05/22/2025____. Planned Procedure Time: 7:30 am___.? Time changes happen often and if your time is changed the preop area will call you the afternoon before. - You and your visitor will be asked to self-screen and do not enter if you have any COVID symptoms. Please call surgeon if you need to reschedule. - A mask is optional within the hospital at this time. Patients may have clear liquids (water, carbonated beverages, clear teas, apple juice) until 3 hours prior to surgery with a maximum of 20 ounces. STOP AT 4:30 AM. - No food from midnight until time of surgery and no smoking, or chewing tobacco (or any form of nicotine). No chewing gum, candy or mints. Take only the following medications with a SIP of water on the morning of surgery: DO NOT STOP ANY OF YOUR OTHER PRESCRIPTION MEDICATIONS PRIOR TO SURGERY EXCEPT THE FOLLOWING: Hold all vitamins and supplements for 3 days per anesthesiologist. Medications to discontinue per physician DO NOT TAKE FAMOTIDINE/PEPCID THE MORNING OF SURGERY._ Please no make-up, nail korean, hairspray, perfume, deodorant, or body powder the day of surgery.? No jewelry (including any body piercings) or valuables the day of surgery, leave them at home.? Please take a shower or bath the night before, or the morning of, surgery with an antibacterial soap.? Wear comfortable, loose fitting clothing.? - Jewelry must be removed prior to entering the operating room.? Rings and piercings that are not removed may be cut off. - The hospital will not accept responsibility for valuables.? - Please leave all valuables, including medications, at home the day of surgery. If you are going home after surgery, a licensed armored truck driver must drive you home.? - NO public transportation without another adult if you receive anesthesia. - We recommend that an adult stay with you for 24 hours following discharge. - We also recommend that you do not drive, make important decision, drink alcoholic beverages, or take any drugs that were not prescribed by your health care provider for at least 24 hours after your discharge time. Follow any additional instructions given to you from your surgeon. Telephone instructions given to ___PATIENT/HERIBERTO and asked if any additional questions and then verbalized understanding. Patient advised to call surgeon office or pre surgery nurse liaison [phone] if any additional questions.
--- NOTE | 2025-05-18 07:07 | PM.IMHP ---
H&P: HPI History of Present Illness Date/Time: 05/18/25 07:07 Chief Complaint: Pelvic pain with dysmenorrhea and dyspareunia refractory to medical therapy Narrative: Is a 40-year-old female admitted for robotic hysterectomy and bilateral salpingectomy secondary to an enlarged uterus and bleeding refractory to medical therapy. She has attempted medical means nothing has been successful. Risks and benefits of this procedure reviewed in full Review of Systems Review of Systems: All systems reviewed & are unremarkable except as noted in HPI and below PMFSH Past Medical History Medical History Anemia Endometriosis Anxiety GERD (gastroesophageal reflux disease) Family History Family History Father Hypertension Mother Asthma Other Diabetes mellitus Family history of malignant neoplasm Social History Social History Smoking packs per day: 0.5 Smoking cigarettes per day: 10.0 Years smoked: 15 Smoking pack-years: 7.50 Smoking status: Never smoker Tobacco type: cigarettes and e-cigarettes/vaping Second hand tobacco smoke exposure: No Smoking end date: 07/26/22 Alcohol intake: current Drinks per week: 10 Alcohol use details: beer Substance use: never Substance use type: does not use Living arrangements: with family Spiritual care concerns: No Meds Home Medications and Allergies Home Medications ?Medication ?Instructions ?Recorded ?Confirmed ?Type alprazolam 0.25 mg tablet 0.25 mg PO BID PRN Anxiety 05/18/22 05/12/25 History escitalopram oxalate 10 mg tablet 10 mg PO HS 05/18/22 05/12/25 History famotidine 20 mg tablet 20 mg PO DAILY 05/12/25 05/12/25 History fish oil BYMOUTH DAILY 05/12/25 History vitamin B complex (Vitamins B 1 cap PO DAILY 05/12/25 05/12/25 History Complex capsule) vitamin d3 with k BYMOUTH DAILY 05/12/25 History Allergies Allergy/AdvReac Type Severity Reaction Status Date / Time morphine Allergy Intermediate Itching, Verified 03/02/23 08:06 HIVES Sulfa (Sulfonamide Allergy Intermediate Hives Verified 03/02/23 08:06 Antibiotics) gluten Allergy Mild Abdominal Verified 05/12/25 13:42 Pain adhesive Allergy Unknown RASH Verified 03/02/23 08:06 Exam Const: General: cooperative, healthy appearing and comfortable Nutritional Appearance: average body habitus Orientation/consciousness: oriented to person, oriented to place and oriented to time HENMT: Head: normal to inspection Resp: Effort & Inspection: normal respiratory effort Cardio: Rate: regular rate Rhythm: regular rhythm Heart sounds: S1 normal heart sound present and S2 normal heart sound present GI: Inspection: normal to inspection : External Female Exam: normal external appearance Speculum Exam - Vagina: normal appearance of the vagina Speculum Exam - Cervix: normal appearance of the cervix Bimanual exam- vagina & uterus: enlarged Bimanual Exam- Adnexa, other: normal adnexae Assessment and Plan Assessment and plan (1) Pelvic pain: Code(s): R10.2 - Pelvic and perineal pain Status: Acute (2) Dyspareunia: Status: Acute (3) Dysmenorrhea: Code(s): N94.6 - Dysmenorrhea, unspecified Status: Acute Plan Proceed with robotic total vaginal hysterectomy and bilateral salpingectomy
[2025-05-22] VITALS (13 sets, daily range): BP systolic 120–148; BP diastolic 75–100; PULSE 65–107; RESP 11–20; TEMP 36.5–36.9; O2SAT 94–98; BMI 29.5
--- OUTSIDE RECORDS SUMMARY | 2025-05-22 00:38 | XMS_ITS | Encounter Summary ---
Author Organization [facility] Address [address] [place] [address] Phone Care Team Providers Care Credit Support Specialist Name Role Phone Messi Rincon MD Primary Care Provider [phone] Derrick Yun MD Primary Care Provider + [...] on file Legal Sex Female 11:51 PM CURRICULUM AND ASSESSMENT COORDINATOR Gender Identity Female 07/12/2022 8:43 AM CURRICULUM AND ASSESSMENT COORDINATOR Sexual Orientation Straight 07/12/2022 8: 43 AM CURRICULUM AND ASSESSMENT COORDINATOR documented as of this encounter Plan of [...] documented as of this encounter Care Teams Credit Support Specialist Relationship Specialty Start Date End Date Messi Rincon MD [address] [place] [address] PCP - General Family Medicine 02/12/17 05/29/23 Derrick Yun MD [address] [facility] [place] [address] PCP - General Internal Medicine 05/30/23 documented as of this encounter
--- OUTSIDE RECORDS SUMMARY | 2025-05-22 00:39 | XMS_ITS | Clinical Summary ---
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 Gender Identity Female 07/12/2022 8:43 AM CASING FLUSHER Sexual Orientation Straight 07/12/2022 8: 43 AM CASING FLUSHER Last Filed Vital Signs Vital Sign Reading [...] this topic Medical Devices Implanted Type Area Chart Calculator Device Identifier Shelf Expiration Date Model / Serial / Lot Iud Uterus [place] [address] [address] [address] TRADITIONAL [facility] ACCESS ANTHEM ACCESS Advance Directives For more information, please contact: [phone] * Full Code (Latest Code Status on File) Date Activated Date Inactivated Comments 07/01/2024 10:24 AM 07/01/2024 4:21 PM Care Teams Brickmason Supervisor Relationship Specialty Start Date End Date Derrick Yun MD [address] [place] [address] PCP - General Internal Medicine 05/30/23
--- OUTSIDE RECORDS SUMMARY | 2025-05-22 00:39 | XMS_ITS | Clinical Summary ---
Author Organization [facility] Address [facility] [place] [address] Care Team Providers Care Enamel Applier Name Role Phone Unavailable Primary Care Provider Unavailabl e Social History Tobacco Use Types Packs/Day Years Used Date Smoking Tobacco: Never Assessed Comments Unknown Sex and Gender Information Value Date Recorded Sex Assigned at Not on file Legal Sex Female 5:47 PM GEOGRAPHY HEAD Gender Identity Not on file Sexual Orientation [...]
--- OUTSIDE RECORDS SUMMARY | 2025-05-22 00:39 | XMS_ITS | Clinical Summary ---
Author Organization [facility] Address [address] [place] [address] Care Team Providers Care Senior Systems Developer Name Role Phone Messi Rinocn MD Primary Care Provider [phone] [phone] Source Comments [facility],non-owned Affiliates and Associated Physician Practices is amultiple site organization consisting of ambulatory clinics and hospital sitesin [place], [place], [place] and [place]. This disclosure is being madepursuant to the Care Everywhere program and may not contain all information available regarding this patient. Last updated 18.[employer] Allergies Active Allergy Reactions Criticality Noted Date [...] were not included. CARE INSTITUTE PATIENT--PLEASE CALL [phone] IF TRIAGED OR ADMITTED THIS CARE PLAN IS BASED ON EVALUATION, SUBJECT TO CHANGE BASED ON ASSESSMENT. Diagnosis: Congenital Diaphragmatic Hernia, left- sided, stomach up, liver down Please see Images and Cardiac under Chart Review for US/ ECHO/ MRI reports. Please also see [facility] EPIC for further images. Planned surveillance: Weekly surveillance (DETENTION/ [facility] office) Planned delivery location: [facility] Delivering Provider: Dr. Robin Mejia Planned GA at delivery: TBD; Scheduled for IOL on 12.01.12 at 8:00 PM at [facility] Planned mode of delivery: TBD; G1 Care Provider: OB- Dr. Ez Najera/ Anatoliy, FABIOLA to Dr. Mejia Consultants involved: M- Roberto, Neonatology- Eber/ Bruce, Pediatric Surgery- David, Genetics- Giovanni, President Celebrity Acquistion- Belle, Fooprints- Conrad care needed at : Per 10.28.12 Neonatology Consult: I told parents that the likely complications would be related to lung volume in the period of time. Specifically, that the may have severe respiratory distress and severe pulmonary hypertension. We discussed the possible interventions including intubation and mechanical ventilation and ECMO, transfer to [facility], and surgery. We also discussed longer [...] studies by calling Dr. Adria Solano at [phone]. Associate Professor Of Biostatistics: Dr. 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
[2025-05-22] MEDS: KETOROLAC 15 MG/ML VIAL (*BKC) IV PUSH (06:45)
[2025-05-22] MEDS: ACETAMINOPHEN 500 MG TABLET 1000 MG PO ×3 (06:45→20:48)
[2025-05-22] MEDS: LACTATED RINGERS 1,000 ML 30 ML IV CONT ×2 (06:45→09:36)
--- NOTE | 2025-05-22 06:45 | WPDHPUPDATE1 ---
History and Physical Update Update Date/Time: 05/22/25 06:45 History and Physical has been reviewed, including an updated exam of the patient. There are NO changes in the patient's condition. Risks, benefits, and alternatives have been discussed and questions answered. Patient agrees to proceed with procedure.
--- NOTE | 2025-05-22 06:57 | P.PNAN_ITS ---
Anes - Initial Pre Proc Eval Procedure: Operation Date: 05/22/25 07:30 Proposed Procedures p Robotic Assisted Total Vaginal Hysterectomy, Bilateral Salpingectomy - Ez Rey MD Date/Time: 05/22/25 06:57 Surgeon: Ez Rey MD Pre Op Diagnosis: pelvic pain, dsymennorhea, irreg bleeding Patient Data Age: 40 Gender: F Height: 1.55 m Weight: 65.8 kg Allergies Allergy/AdvReac Type Severity Reaction Status Date / Time morphine Allergy Intermediate Itching, Verified 05/22/25 06:45 HIVES Sulfa (Sulfonamide Allergy Intermediate Hives Verified 05/22/25 06:45 Antibiotics) gluten Allergy Mild Abdominal Verified 05/22/25 06:45 Pain adhesive Allergy Unknown RASH Verified 05/22/25 06:45 Home Medications ?Medication ?Instructions ?Recorded ?Confirmed ?Type alprazolam 0.25 mg tablet 0.25 mg PO BID PRN Anxiety 1 07/19/21 05/12/25 History escitalopram oxalate 10 mg tablet 10 mg PO HS 05/18/22 05/12/25 History famotidine 20 mg tablet 20 mg PO DAILY 05/12/2504/19 History fish oil BYMOUTH DAILY 05/12/25 Hist ory vitamin B complex (Vitamins B 1 cap PO DAILY 05/12/25 05/22/25 History Complex capsule) vitamin d3 with k BYMOUTH DAILY 05/12/25 Hist ory Patient hx anesthesia problems: none Family hx anesthesia problems: none Results Review: All pre-operative results and documents have been reviewed as part of the pre- operative evaluation. [facility] Past Medical History Medical History (Updated 05/21/25 @ 11:37 by Adria Martinez DO) Celiac disease Anemia Endometriosis Anxiety GERD (gastroesophageal reflux disease) Family History Family History Father Hypertension Mother Asthma Other Diabetes mellitus Family history of malignant neoplasm Social History Social History Smoking packs per day: 0.5 Smoking cigarettes per day: 10.0 Years smoked: 15 Smoking pack-years: 7.50 Smoking status: Never smoker Tobacco type: cigarettes and e-cigarettes/vaping Second hand tobacco smoke exposure: No Smoking end date: 07/26/22 Alcohol intake: current Drinks per week: 10 Alcohol use details: beer Substance use: never Substance use type: does not use Living arrangements: with family Spiritual care concerns: No Anes - Eval Final PreProcedure Day of Procedure 05/22/25 06:57 Patient weight: overweight Heart: regular rate and rhythm Lungs: clear to auscultation Airway: Mallampati scale class II Neurological: alert and oriented Last oral intake: >/= 8 hours ASA classification: III Emergent: no Anesthetic plan: proceed Anesthesia type and monitoring: general ETT and standard monitoring Results Review: All pre-operative results and documents have been reviewed as part of the pre- operative evaluation. Informed Consent: The patient's anesthetic plan and its attendant risks and benefits were discussed with the patient/family/POA. Questions were solicited and answers provided to the satisfaction of the patient/family/POA.
[2025-05-22 06:59] LABS: BEDSIDEPREGUCG Negative (Negative)
[2025-05-22] MEDS: ceFAZolin 2 GM in SODIUM CHLORIDE 0.9% IV 50 ML 100 ML IVPB (07:28)
--- NOTE | 2025-05-22 08:27 | S_PTH ---
PATIENT: Stephanie Saucedo LOC: [facility] U#:[id number] AGE/SX: 40/F ROOM: RE05/22/[address]: Ez Rey MD : 1985 BED: DIS: 05/23/2025 SPEC #: [id number] RECD: 05/22/25 08:52 STATUS: IMAN REJennifer #: [id number] JOSE ANGEL: 05/22/25 08:[address]: Ez Ricketts DEPT: [facility] Surgical RECD BY: Enriqueta Aggarwal ENTERED: 05/22/25 08:52 SP TYPE: Surgical OTHR DR: Derrick YunMD Tissues: A - Uterus Procedures: Hematoxylin and Eosin Stain Gross and Microscopic Level 5
--- NOTE | 2025-05-22 08:30 | P.OP_ITS ---
Procedure Note - Detailed Date of Procedure 05/22/25 Pre-op Diagnosis pelvic pain, dsymennorhea, irreg bleeding Post-op Diagnosis Same Procedure Performed Robotic total vaginal hysterectomy and bilateral salpingectomy Surgeon Ez Rey MD Anesthesia General Indications Is a 40-year-old female with history pelvic dyspareunia and excessive heavy bleeding refractory to medical therapy Findings Enlarged uterus. Normal-appearing ovaries and tubes. Description of Procedure The patient was prepped and draped in sterile fashion placed in the dorsal lithotomy position. Under excellent general endotracheal anesthesia weighted speculum placed in posterior fornix vagina. Anterior lip of the cervix grasped with a single-tooth tenaculum uterus sounded to 10cm. Serial dilatation with fragmented dilators performed followed by passage of the 8. YASMINE and the 3. Cold cup. Next the 16 Croatian catheter was placed in the bladder and drained of clear urine the weighted speculum and the single-tooth removed. The gloves were changed. A supraumbilical incision made and the Veress needle passed in the abdomen. Abdomen filled with CO2 gas [id number]. The 8mm trocar advanced in the abdomen. Downside visualized no injury seen patient placed in 18? of Trendelenburg and right left lateral quadrant incisions made. 8mm trocars advanced under direct visualization assuring no injury a right upper quadrant incision then made. The its was trocar was advanced assuring no injury. The robot was docked. Attention was turned to the certified personal finance counselor. The left round ligament was grasped, burned, cut. The bladder was noted to be riding high on the cervix uterus of this was layer by layer dissected away until this was the clear caudally and then brought across to the peritoneum to the round ligament on the right this was clamped, burned, cut. Next the left fallopian tube was sharply dissected away from the ovarian complex and left it is ovarian origin. In similar fashion the right fallopian tube was dissected away from the ovarian complex and left its uterine origin. The left and utero-ovarian ligament was skeletonized clamping burning cutting and bringing this to level of previously cut round ligament conserving the left ovary. In similar fashion on the right the utero- ovarian ligament was clamped, burned, cut and brought to level of previously cut round ligament conserving the left ovary. Next the cardinal and broad ligaments were serially skeletonized and hugging the cervix and uterus there were clamped, burned, cut until the uterine vessels could be seen on the left. These were individually clamped, burned, cut. Next the cardinal broad ligaments on the right were serially skeletonized clamping burning and cutting hugging the cervix and uterus until the uterine vessels could be seen on the right these were individually clamped, burned, cut. Excellent blanching the uterus was noted and a colpotomy incision made cervix uterus and tubes removed through the vagina. The vagina then closed with continuous running 0V lock from lateral edge to lateral edge back to the midline. Irrigation undertaken until clear and [place] term placed over the raw surface area hemostasis was assured blood loss estimated at25cc the instruments withdrawn. The robot was undocked. The gas removed from the abdomen. The trocars removed the incisions closed with 4-0 Monocryl and glue. The patient was awakened went recovery in satisfactory condition. All sponge, needle, instrument counts were correct. There were no immediate complications Estimated Blood Loss 25 Drains No Packing No Pathology Yes Complications No immediate complications Condition Stable Disposition PACU
--- NOTE | 2025-05-22 08:36 | P.DS_ITS ---
DS: Admitting Diagnosis Discharge Date 05/23/2025 Admitting Diagnosis Pelvic pain dyspareunia dysmenorrhea DS: Discharge Diagnosis Discharge Diagnosis (1) Pelvic pain: Code(s): R10.2 - Pelvic and perineal pain Status: Acute (2) Dyspareunia: Status: Acute (3) Dysmenorrhea: Code(s): N94.6 - Dysmenorrhea, unspecified Status: Acute DS: Summary Hospital Course Reason for hospitalization: Patient was admitted for robotic total vaginal hysterectomy bilateral salpingectomy on 05/22/2025 Hospital Course: Patient's hospital course unremarkable. She remained afebrile. She was up, voiding without difficulty, eating regular diet, ambulating, and generally without complaints Time Spent with Patient Time attestation: Total time spent providing and/or coordinating discharge services: Exam Const: General: cooperative, healthy appearing and comfortable Nutritional Appearance: average body habitus Orientation/consciousness: oriented to person, oriented to place and oriented to time HENMT: Head: normal to inspection Resp: Effort & Inspection: normal respiratory effort Cardio: Rate: regular rate Rhythm: regular rhythm Heart sounds: S1 normal heart sound present and S2 normal heart sound present GI: Inspection: normal to inspection : External Female Exam: normal external appearance Speculum Exam - Va joselin: normal appearance of the vagina Speculum Exam - Cervix: normal appearance of the cervix Bimanual exam- vagina & uterus: enlarged Bimanual Exam- Adnexa, other: normal adnexae DS: Data Data Completed and Pending Pending studies at discharge: Pending at discharge 05/22/25 08:27 Surgical [PTH] Routine Labs on day of discharge: Labs from last 24 hours 05/22/25 06:49 POC Urine HCG, Qual Negative Discharge Plan Discharge Patient Disposition: Home Patient Language: Albanian Stand Alone Forms: General Discharge Instructions Follow-up/Referrals: Ez Ricketts MD [Physician, PERPETUAL INVENTORY CLERK] Discharge Medications: New oxycodone-acetaminophen [Endocet] 5-325 mg tablet 1 tablet PO Q4H PRN (Reason: pain) Qty: 20 0RF No Action vitamin B complex [Vitamins B Complex] Capsule 1 cap PO DAILY famotidine 20 mg tablet 20 mg PO DAILY fish oil BYMOUTH DAILY Patient Comments: unknown strength vitamin d3 with k capsule BYMOUTH DAILY Patient Comments: unknown strength alprazolam 0.25 mg tablet 0.25 mg PO BID PRN (Reason: Anxiety) escitalopram oxalate 10 mg tablet 10 mg PO HS
[2025-05-22] MEDS: fentaNYL CITRATE INJ (*CRX) 100 MCG/2 ML VIAL 25 MCG IV PUSH ×8 (08:50→10:01)
[2025-05-22] MEDS: HYDROmorphone HCL INJ (*CRX) 1 MG/ML SYR 0.5 MG IV PUSH ×4 (09:35→09:52)
[2025-05-22] MEDS: DEXTROSE 5%/LACTATED RINGERS 1,000 ML 125 ML IV CONT (10:40)
[2025-05-22] MEDS: oxyCODONE HCL (*CRX) 5 MG TAB IR 10 MG PO ×2 (10:40→19:39)
[2025-05-22] MEDS: KETOROLAC 30 MG/ML VIAL (*BKC) IV PUSH ×2 (14:45→20:47)
[2025-05-22] MEDS: SIMETHICONE 80 MG TAB.CHEW PO (17:37)
[2025-05-22] MEDS: DOCUSATE SODIUM 100 MG CAPSULE PO (17:37)
[2025-05-23] MEDS: diphenhydrAMINE HCl CAP 25 MG CAPSULE PO ×2 (00:40→07:24)
[2025-05-23] MEDS: KETOROLAC 30 MG/ML VIAL (*BKC) IV PUSH (02:53)
[2025-05-23] MEDS: ACETAMINOPHEN 500 MG TABLET 1000 MG PO ×2 (02:53→09:17)
[2025-05-23] MEDS: oxyCODONE HCL (*CRX) 5 MG TAB IR 10 MG PO ×2 (02:56→09:18)
[2025-05-23 03:51] LABS: Hematocrit 36.9 % (37.0-47.0); Hemoglobin 12.7 g/dL (12.0-15.0); Immature Granulocyte Percent A 0.2 % (0-0.5); Lymphocytes Absolute Auto 1.09 K/mm3 (0.9-3.2); Mean Corpuscular HGB Conc 34.4 g/dl (32-36); Mean Corpuscular Hemoglobin 33.6 pg (26-34); Mean Corpuscular Volume 97.6 fl (80-100); Nucleated Red Blood Cells Absolute Auto 0.000 K/mm3 (0.0-0.012); Nucleated Red Blood Cells Perc 0.0 % (0.0-0.2); Platelet Count Result 159 k/mm3 (150-375); Red Blood Count 3.78 M/mm3 (4.2-5.4); White Blood Count 6.5 K/mm3 (4.5-10.0)
[2025-05-23 04:05] VITALS: BP 134/81; PULSE 62; RESP 15; TEMP 36.9; O2SAT 98
--- NOTE | 2025-05-23 05:27 | PM.GYNPNOP ---
[employer]IV[employer] - A/P Assessment and plan (1) Pelvic pain: Code(s): R10.2 - Pelvic and perineal pain Status: Acute (2) Dyspareunia: Status: Acute (3) Dysmenorrhea: Code(s): N94.6 - Dysmenorrhea, unspecified Status: Acute Plan home, f 2 weeks Postoperative Procedures: Procedures Operation Date: 05/22/25 07:30 Actual Procedure Side Surgeon p Robotic Assisted Total Vaginal Hysterectomy, Bilateral Salpingectomy Bilateral Ez Rey MD Time Spent With Patient Time: Total time spent is greater than 50% in coordination of care (as documented) at patient's floor/unit and/or counseling patient: Time with patient: less than 15 minutes [employer]IV[employer] PROFESSION[employer]- PN:Subj Post-Op Subjective Date/time seen: 05/23/25 05:27 Subjective: patient reports feeling better, patient has no complaints, patient desires discharge, pain is well controlled and patient is tolerating oral intake Review of Systems Review of Systems: All systems reviewed & are unremarkable except as noted in HPI and below Exam Const: General: cooperative, healthy appearing and comfortable Nutritional Appearance: average body habitus Orientation/consciousness: oriented to person, oriented to place and oriented to time HENMT: Head: normal to inspection Resp: Effort & Inspection: normal respiratory effort Cardio: Rate: regular rate Rhythm: regular rhythm Heart sounds: S1 normal heart sound present and S2 normal heart sound present GI: Inspection: normal to inspection : External Female Exam: normal external appearance Speculum Exam - Vagina: normal appearance of the vagina Speculum Exam - Cervix: normal appearance of the cervix Bimanual exam- vagina & uterus: enlarged Bimanual Exam- Adnexa, other: normal adnexae [employer] PROFESSION[employer] - PN: Obj Data Vital Signs Vital Signs: Vital Signs - 24 hr 05/22/25 06:49 05/22/25 08:39 05/22/25 08:50 Temperature 98.5 F 97.7 F Pulse Rate 89 79 72 Respiratory Rate 11 L 20 Blood Pressure 136/100 H 123/88 144/91 H Pulse Oximetry 98 96 97 Oxygen Delivery Room Air Simple Face Mask Room Air Oxygen Flow Rate 8 05/22/25 09:05 05/22/25 09:15 05/22/25 09:30 Temperature Pulse Rate 74 78 89 Respiratory Rate 18 18 16 Blood Pressure 137/89 140/80 143/92 H Pulse Oximetry 96 97 96 Oxygen Delivery Room Air Room Air Room Air Oxygen Flow Rate 05/22/25 09:45 05/22/25 10:00 05/22/25 10:10 Temperature Pulse Rate 91 100 97 Respiratory Rate 16 18 20 Blood Pressure 144/88 H 147/90 H 148/82 H Pulse Oximetry 97 94 94 Oxygen Delivery Room Air Room Air Room Air Oxygen Flow Rate 05/22/25 10:20 05/22/25 14:49 05/22/25 19:35 Temperature 98.4 F 98.2 F 98.1 F Pulse Rate 107 H 92 76 Respiratory Rate 16 16 16 Blood Pressure 148/95 H 124/87 135/85 Pulse Oximetry 98 98 97 Oxygen Delivery Oxygen Flow Rate 05/22/25 19:35 05/22/25 23:05 05/22/25 23:05 Temperature 98.4 F Pulse Rate 76 65 65 Respiratory Rate 16 15 15 Blood Pressure 120/75 Pulse Oximetry 97 97 97 Oxygen Delivery Room Air Room Air Oxygen Flow Rate 05/23/25 04:05 05/23/25 04:05 Temperature 98.4 F Pulse Rate 62 62 Respiratory Rate 15 15 Blood Pressure 134/81 Pulse Oximetry 98 98 Oxygen Delivery Room Air Oxygen Flow Rate Intake/Output Intake/Output: Intake & Output 05/20/25 05/21/25 05/22/25 05/23/25 23:59 23:59 23:59 23:59 Intake Total 500 1010 Output Total 1700 Balance -1200 1010 Meds/Results Medications: Active Medications Generic Name Dose Route Start Last Admin Trade Name Freq PRN Reason Stop Dose Admin Acetaminophen 1,000 mg 05/22/25 12:00 05/23/25 02:53 Acetaminophen 500 Mg Tablet PO 1,000 mg Q6HR ANDREA Administration Diphenhydramine HCl 25 mg 05/22/25 23:23 05/23/25 00:40 Diphenhydramine Hcl Cap 25 Mg Capsule PO 25 mg Q6H PRN Administration Itching Docusate Sodium 100 mg 05/22/25 10:12 05/22/25 17:37 Docusate Sodium 100 Mg Capsule PO 100 mg BID ANDREA Administration Enoxaparin Sodium 40 mg 05/23/25 09:00 Enoxaparin 40 Mg/0.4 Ml Syringe SUB-Q DAILY ANDREA Dextrose/Lactated Ringer's 1,000 mls @ 125 mls/hr 12/05/25 10:12 05/22/25 10:40 Dextrose 5%/Lactated Ringers IV CONT 125 mls/hr .Q8H ANDREA Administration Ibuprofen 600 mg 05/23/25 06:00 Ibuprofen 600 Mg Tablet PO Q6HR ANDREA Naloxone HCl 0.1 mg 05/22/25 10:12 Naloxone Hcl 0.4 Mg/Ml Vial IV PUSH Q2M PRN Respiratory rate less than 10 Ondansetron HCl 4 mg 05/22/25 10:12 Ondansetron Inj 4 Mg/2 Ml Vial IV PUSH Q6H PRN Nausea And Vomiting Oxycodone HCl 5 mg 05/22/25 10:12 Oxycodone Hcl (*Crx) 5 Mg Tab Ir PO Q4H PRN Pain Rated 4-6 Oxycodone HCl 10 mg 05/22/25 10:12 05/23/25 02:56 Oxycodone Hcl (*Crx) 5 Mg Tab Ir PO 10 mg Q6H PRN Administration Pain Rated 7-10 Simethicone 80 mg 05/22/25 12:00 05/22/25 17:37 Simethicone 80 Mg Tab.Chew PO 80 mg TIDWM ANDREA Administration Labs 05/23/25 03:45 Labs: Laboratory Results - last 24 hr 05/22/25 05/23/25 06:49 03:45 WBC 6.5 RBC 3.78 L Hgb 12.7 Hct 36.9 L MCV 97.6 MCH 33.6 MCHC 34.4 RDW 12.7 Plt Count 159 MPV 10.1 Immature Gran % (Auto) 0.2 Neut % (Auto) 73.9 H Lymph % (Auto) 16.8 L Hanson % (Auto) 8.8 H Eos % (Auto) 0.0 Baso % (Auto) 0.3 Lymph # (Auto) 1.09 Hanson # (Auto) 0.6 Eos # (Auto) 0.0 Baso # (Auto) 0.0 Abs Immat Gran (auto) 0.01 Absolute Neuts (auto) 4.8 Absolute Nucleated RBC 0.000 Nucleated RBC % 0.0 POC Urine HCG, Qual Negative
[2025-05-23 05:47] LABS: Iron 50 ug/dL (37-170)
[2025-05-23 05:56] LABS: Percent Iron Saturation 16 % (20-50)
[2025-05-23 07:20] VITALS: BP 124/90; PULSE 74; RESP 16; TEMP 37; O2SAT 98
--- NOTE | 2025-05-23 07:20 | PC.NURSE ---
Pt complaining of itching, requesting benadryl and would like to shower. Discussed shower/incision care. Towels and wash cloths in the bathroom, will get pt benadryl along with body soap and lotion.
[2025-05-23] MEDS: SIMETHICONE 80 MG TAB.CHEW PO (09:17)
[2025-05-23] MEDS: IBUPROFEN 600 MG TABLET PO (09:17)
[2025-05-23] MEDS: ENOXAPARIN 40 MG/0.4 ML SYRINGE SUB-Q (09:18)
[2025-05-23] MEDS: DOCUSATE SODIUM 100 MG CAPSULE PO (09:18)
== END 2025-05-23 09:54 | disposition home or self-care (01) ==
LOC: ANHSURGERY 06:46 → ANHOB2 10:13
PROVIDERS: PCP Internal Medicine; Visit Provider Obstetrics & Gynecology
PROC: (CPT 58552; principal; 2025-05-22 07:30)
DX: N88.0 Leukoplakia of cervix uteri (principal); N83.8 Other noninflammatory disorders of ovary, fallopian tube and broad ligament; D64.9 Anemia, unspecified; F41.9 Anxiety disorder, unspecified; K21.9 Gastro-esophageal reflux disease without esophagitis; K90.0 Celiac disease; N80.9 Endometriosis, unspecified; Z97.5 Presence of (intrauterine) contraceptive device; Z87.891 Personal history of nicotine dependence; Z80.9 Family history of malignant neoplasm, unspecified
CPT/HCPCS: 58552; S2900; 36415; 83540; 83550; 85025; 88307; J0690; A9270; J1100; J1171; J1200; J1650; J1885; J2003; J2250; J2405; J2704; J3010; J7120; J7121